=== PATIENT | female | born 1960 ===

== ENCOUNTER → 2018-07-02 | Outpatient (CLI) | payer MEDICARE, MEDICAID ==
[~2018-07-02] MED LIST: ARIP20TA11 PO; ATOR20TA65 PO; CYA1000 PO; FLU60VIA41 IM; FLUT16SP19 NS; LEV125 PO; LEVO-3 PO; NAPR-417 PO; QUET50TA PO
[2018-07-02 14:00] LABS: PLATELET COUNT, AUTOMATED 217 K/uL (150-450)
[2018-07-02 14:16] LABS: LDL CHOLESTEROL 65 mg/dl
== END ==
LOC: LAB 13:32
PROVIDERS: ATTEND Emergency Medicine
DX: E78.5 Hyperlipidemia, unspecified (principal); R20.8 Other disturbances of skin sensation; E03.9 Hypothyroidism, unspecified
CPT/HCPCS: 36415; 82040; 82247; 82310; 82374; 82435; 82465; 82565; 82607; 82947; 83036; 83718; 84075; 84132; 84155; 84295; 84443; 84450; 84460; 84478; 84520; 85025

== ENCOUNTER → 2018-08-13 | Outpatient (CLI) | payer MEDICARE, MEDICAID ==
[~2018-08-13] MED LIST changes: +LEVO75TA73 PO
== END ==
LOC: LAB 10:39
PROVIDERS: ATTEND Emergency Medicine
DX: E03.9 Hypothyroidism, unspecified (principal)
CPT/HCPCS: 36415; 82310; 84443

== ENCOUNTER → 2018-09-20 | Outpatient (CLI) | payer MEDICARE, MEDICAID ==
[~2018-09-20] MED LIST changes: +LEVO50TA86 PO; +NAPR500T31 PO
== END ==
LOC: LAB 08:20
PROVIDERS: ATTEND Emergency Medicine
DX: E53.8 Deficiency of other specified B group vitamins (principal); E03.9 Hypothyroidism, unspecified
CPT/HCPCS: 36415; 82607; 84443

== ENCOUNTER → 2018-11-08 | Outpatient (CLI) | payer MEDICARE, MEDICAID | LOC: LAB 10:10 | PROVIDERS: ATTEND Emergency Medicine | DX: E03.9 Hypothyroidism, unspecified (principal) | CPT/HCPCS: 36415; 84443 ==